=== PATIENT | female | born 1945 | race American Indian/Alaskan Native ===

== ENCOUNTER 2016-10-10 06:05 | Day surgery (SDC) | payer MEDICARE ==
[2016-10-10] MEDS ORDERED: WATER FOR IRRIG STERILE IR ONE ×2 (07:19→08:00)
--- NOTE | 2016-10-10 07:30 | Anesthesia Day of Surgery ---
Anesthesia Day of Surgery - Day of Surgery Patient Examined: Yes Patient H&P Reviewed: Yes Patient is NPO: Yes
[2016-10-10] MEDS ORDERED: DIPRIVAN 10 MG/ML IV ONE (07:31)
--- NOTE | 2016-10-10 07:31 | Anesthesia Consultation ---
Anesthesia Consult and Med Hx Date of service: 10/10/16 - Airway Anesthetic Teeth Evaluation: Good ROM Head & Neck: Adequate Mental/Hyoid Distance: Adequate Mallampati Class: Class II Intubation Access Assessment: Probably Good - Pulmonary Exam CTA: Yes - Cardiac Exam Cardiac Exam: RRR - Pre-Operative Health Status ASA Pre-Surgery Classification: ASA3 Proposed Anesthetic Plan: MAC - Pulmonary Hx Smoking: No SOB: Yes - Cardiovascular System Hx Hypertension: Yes Hx Heart Attack/AMI: No - Central Nervous System Hx Seizures: No CVA: No - Endocrine Hx Renal Disease: No Hx Liver Disease: No Hx Non-Insulin Dependent Diabetes: Yes (prediabetic, takes metformin) - Other Systems Hx Obesity: Yes - Additional Comments Anesthesia Medical History Comments: NAC
[2016-10-10] MEDS ORDERED: NACL 0.9% 1000 ML 1,000 ML IV SCH (08:00)
--- NOTE | 2016-10-10 08:19 | Discharge Summary ---
Providers - Providers Date of discharge: 10/10/16 Attending physician: JACQUE PALOMINO Hospitalization Condition: Good Procedures: egd Disposition: DC-01 TO HOME OR SELFCARE Core Measure Documentation - Palliative Care Palliative Care/ Comfort Measures: Not Applicable - Core Measures Any of the following diagnoses?: none Exam - Physical Exam Narrative exam: unchanged from pre-op - Constitutional Vitals: Temp Pulse Resp BP Pulse Ox 98.4 F 89 22 157/96 95 10/10/16 07:58 10/10/16 07:58 10/10/16 07:58 10/10/16 07:58 10/10/16 07:58 Plan Activity: no restrictions Weight Bearing Status: Full Weight Bearing
--- NOTE | 2016-10-10 08:22 | Operative Report ---
Operative Report Operative Report: OPERATIVE REPORT - EGD DATE 10/10/16 SURGERY: Upper endoscopy. SURGEON: Gordo Velasco M.D. SUBSTANCE ABUSE TECHNICIAN: n/a PRE OP DX:dyspepsia POST OP DX:hiatal hernia TYPE OF ANESTHESIA: MAC. ESTIMATED BLOOD LOSS: None. COMPLICATIONS: None. SPECIMENS REMOVED: None. FINDINGS: 1. Small hiatal hernia. 2. Otherwise, normal esophagus, stomach and first portion of duodenum. INDICATIONS:INDICATION FOR PROCEDURE: Patient is a 70-year-old female with a long history of morbid obesity. She has dyspepsia and is here to eval for pathology prior to bariatric surgery. She is planned to have a weight loss procedure and is here for preoperative planning EGD. PROCEDURE DETAILS: After consent was reviewed, patient was taken back to the operating room where patient was placed in the left lateral decubitus position and a bite block was placed in the mouth. After a time-out was called, MAC anesthesia was initiated. I then passed the endoscope into her oropharynx, into her esophagus, visualized the entire esophagus, which was all within normal limits. I then visualized the stomach and the first portion of the duodenum and there were no abnormalities I could clearly visualize. I then retroflexed the scope in the stomach and visualized the hiatus and I could see a small hiatal hernia. I then desufflated the stomach and removed the endoscope. Patient tolerated procedure well and was transferred to recovery room in good and stable condition.
--- NOTE | 2016-10-10 08:28 | Post Anesthesia Evaluation ---
- Post Anesthesia Evaluation Patient Participated: Yes Airway Patent: Yes Stable Respiratory Function: Yes Nausea/Vomiting: No Temp > 96.8F: Yes Pain Manageable: Yes Adequeate Hydration: Yes Anesthesia Complications: No Block Receding Appropriately: Not Applicable Patient on Ventilator: No
[2016-10-10 08:31] VITALS: BP 129/86
== END 2016-10-10 06:06 | disposition home or self-care (01) ==
LOC: GIO 06:05
PROVIDERS: ATTEND Surgery
DX: K44.9 Diaphragmatic hernia without obstruction or gangrene (principal); I10 Essential (primary) hypertension; E66.01 Morbid (severe) obesity due to excess calories; Z68.41 Body mass index [BMI] 40.0-44.9, adult; Z88.0 Allergy status to penicillin; Z88.1 Allergy status to other antibiotic agents; Z91.013 Allergy to seafood; Z90.710 Acquired absence of both cervix and uterus; Z96.659 Presence of unspecified artificial knee joint; Z79.899 Other long term (current) drug therapy
CPT/HCPCS: 43235; 82962; J2704; J7030

== ENCOUNTER 2017-01-10 10:15 | Inpatient (IN) | payer MEDICARE ==
--- NOTE | 2017-01-05 10:29 | Anesthesia Consultation ---
Anesthesia Consult and Med Hx Date of service: 01/05/17 - Airway Anesthetic Teeth Evaluation: Good ROM Head & Neck: Adequate Mental/Hyoid Distance: Adequate Mallampati Class: Class II Intubation Access Assessment: Probably Good - Pulmonary Exam CTA: Yes - Cardiac Exam Cardiac Exam: RRR - Pre-Operative Health Status ASA Pre-Surgery Classification: ASA3 Proposed Anesthetic Plan: General - Pulmonary Hx Smoking: No SOB: Yes Hx Sleep Apnea: Yes - Cardiovascular System Hx Hypertension: Yes (SINCE 2006) Hx Heart Attack/AMI: No - Central Nervous System Hx Seizures: No CVA: No Hx Psychiatric Problems: No - Endocrine Hx Renal Disease: No Hx Liver Disease: No Hx Non-Insulin Dependent Diabetes: Yes (prediabetic, takes metformin) - Other Systems Hx Alcohol Use: No Hx Substance Use: No Hx Cancer: No Hx Obesity: Yes
[~2017-01-10 10:15] MED LIST: APRESOLINE IV PRN; DILAUDID IV PRN; FLAGYL 500 MG/100 ML 500 MG/100 ML BAG IV NR; LEVAQUIN 500MG/100ML 500 MG/100 ML BAG IV NR; LOVENOX SUB-Q NR; MYLICON PO PRN; NACL 0.9% 1000 ML 1,000 ML IV SCH; PEPCID PO NR; REGLAN IV PRN; TRANSDERM-SCOP TD SCH; VERSED IV NR; ZOFRAN IV PRN
[2017-01-10] MEDS ORDERED: DIPRIVAN 10 MG/ML IV ONE (11:44)
[2017-01-10] MEDS ORDERED: SUBLIMAZE ONE (11:44)
[2017-01-10] MEDS ORDERED: XYLOCAINE MPF 2% ONE (11:49)
[2017-01-10] MEDS ORDERED: ZEMURON IV ONE (11:49)
[2017-01-10] MEDS ORDERED: XYLOCAINE 1% 20 mL ONE (11:53)
[2017-01-10] MEDS ORDERED: MARCAINE 0.5% 30 ML INFILTRATI ONE (11:53)
[2017-01-10] MEDS ORDERED: NACL 0.9% IR ONE ×2 (11:58)
[2017-01-10] MEDS ORDERED: MARCAINE 0.5% INFILTRATI ONE (11:58)
[2017-01-10] MEDS ORDERED: XYLOCAINE 1% 20 mL INFILTRATI ONE (11:58)
[2017-01-10] MEDS ORDERED: NEO SYNEPHRINE/NS Syringe(OR USE) IV ONE (12:00)
[2017-01-10] MEDS ORDERED: VERSED IV NR (12:00)
[2017-01-10] MEDS ORDERED: PEPCID IV NR (12:00)
[2017-01-10 12:03] LABS: Alanine Aminotransferase 33 units/L (7-56); Albumin 4.3 g/dL (3.9-5); Albumin/Globulin Ratio 1.6 %; Alkaline Phosphatase 70 units/L (35-129); Anion Gap 15 mmol/L; BUN/Creatinine Ratio 13; Basophils % (Auto) 0.9 % (0.0-1.8); Blood Urea Nitrogen 8 mg/dL (7-17); Calcium 9.3 mg/dL (8.4-10.2); Carbon Dioxide 27 mmol/L (22-30); Chloride 106.9 mmol/L (98-107); Eosinophils % (Auto) 2.7 % (0.0-4.3); Glucose 100 mg/dL (65-100); Hematocrit 43.1 % (30.3-42.9); Hemoglobin 14.3 gm/dl (10.1-14.3); Mean Corpuscular HGB Conc 33 % (30-34); Mean Corpuscular Hemoglobin 28 pg (28-32); Mean Corpuscular Volume 83 fl (79-97); Platelet Count 313 K/mm3 (140-440); Potassium 4.3 mmol/L (3.6-5.0); Red Blood Count 5.18 M/mm3 (3.65-5.03); Red Cell Distribution Width 14.3 % (13.2-15.2); Sodium 145 mmol/L (137-145); White Blood Count 5.2 K/mm3 (4.5-11.0)
[2017-01-10] MEDS ORDERED: DECADRON ONE (12:03)
[2017-01-10] MEDS ORDERED: ZOFRAN ONE ×2 (12:03→12:23)
[2017-01-10 12:18] LABS: Bacteria,Urine 1+ /HPF (Negative); Bilirubin,Urine NEG (Negative); Blood,Urine NEG (Negative); Ketones,Urine NEG (Negative); Leukocyte Esterase,Urine TR (Negative); Mucus,Urine 3+ /HPF; Nitrite,Urine NEG (Negative); Protein,Urine <15 mg/dL mg/dL (Negative)
[2017-01-10] MEDS ORDERED: NEOSTIGMINE ONE (12:22)
[2017-01-10] MEDS ORDERED: ROBINUL ONE ×2 (12:22)
[2017-01-10] MEDS ORDERED: DILAUDID ONE (12:24)
--- NOTE | 2017-01-10 12:33 | Anesthesia Day of Surgery ---
Anesthesia Day of Surgery - Day of Surgery Patient Examined: Yes Patient H&P Reviewed: Yes Patient is NPO: Yes
[2017-01-10] MEDS ORDERED: ePHEDrine SULFATE ONE (13:09)
[2017-01-10] MEDS: DILAUDID IV PRN ×3 (14:30→15:20)
--- NOTE | 2017-01-10 14:45 | Operative Report ---
Operative Report Operative Report: DATE OF PROCEDURE: 01/10/17 PREOPERATIVE DIAGNOSES: Morbid obesity, hiatal hernia POSTOPERATIVE DIAGNOSES: 1.same as pre-op SURGEON: Dr. Douglas LABOR TRAINER: Dr. Luis Fernando Stroud DO PROCEDURE: 1. laparoscopic sleeve gastrectomy 2. laparoscopic hiatal hernia repair ANESTHESIA: General. ESTIMATED BLOOD LOSS: <5 mL. COMPLICATIONS: None. SPECIMEN: Partial gastrectomy. FINDINGS: 1. hiatal hernia INDICATION FOR PROCEDURE: Patient is a 71-year-old female with a long history of morbid obesity. She has tried multiple efforts at weight loss without senior care success. She is here today for sleeve gastrectomy. She has a hx of hysterectomy and lap seven as well. PROCEDURE IN DETAIL: After consent was reviewed, patient was taken back to the operating room, where patient was placed supine on the bed with both arms out. The patient's legs were doubly strapped to the bed. Patient had a foot board in place. Patient had a body warmer placed by anesthesia. Patient was then prepped and draped in normal sterile surgical fashion. After a time-out was called, I made a stab incision in the umbilicus and placed a Veress needle through this incision and insufflated the abdomen to 18 mmHg pressure. Once the abdomen was adequately insuflated I widened the umbical incision were the veress had been placed and inserted a 15mm trocar. I then placed a 45-degree scope through this port and inspected the abdomen. There was no injury on entry of the abdomen. I then placed two 5-mm ports in the right upper quadrant, one along the anterior axillary line and 1 subxiphoid below the costovertebral angle. I then placed left upper quadrant port along the anterior axillary line in a similar fashion. I then placed the liver retractor through the subxiphoid port and placed the patient in full reverse Trendelenburg. The right and left crura were skeletonized accentuating a small hiatal hernia. An anterior cruraplasty was perfromed with a figure-of-8 stitch using Endostitch with 0 ethibond suture to reapproximate the crura. I then identified the pylorus and then counted off 6cm from the pylorus. I then used a LigaSure cutting device to enter into the lesser sac. At that point and then I took down the short gastrics all the way up to the left katie. Then I had anesthesia pass down a 36-Beninese bougie along the lesser curvature of the stomach. I made sure everything else was out of the abdomen except the bougie. I then created my gastric sleeve using a 60-mm laparoscopic stapler. . The sleeve looked good without any twisting or torsion. I then had anesthesia to remove the bougie. Hemostasis was obtained along the staple line. I then used Tiseel along the entirety of the staple line and some on the liver. I then removed liver grasper and took it off the field. I then removed the stomach through the 15-mm umbilcal port. I then closed that fascia with a #1 PDS in a [id number] fashion using a Shreyas-Stu. I then desufflated the abdomen and then removed all port sites. I then closed the incisions with 4-0 Monocryl in subcuticular fashion. I then dressed the wounds with steristrips and gauze. Patient tolerated the procedure well and was transferred to recovery room in good and stable condition.
--- NOTE | 2017-01-10 15:02 | Post Anesthesia Evaluation ---
- Post Anesthesia Evaluation Patient Participated: Yes Airway Patent: Yes Stable Respiratory Function: Yes Temp > 96.8F: Yes Pain Manageable: Yes Adequeate Hydration: Yes Anesthesia Complications: No
[2017-01-10] MEDS: LACTATED RINGERS 1,000 ML IV SCH ×2 (16:38→23:04)
[2017-01-10] MEDS: NORCO PO PRN (23:03)
[2017-01-11 05:14] LABS: Basophils % (Auto) 0.3 % (0.0-1.8); Hematocrit 38.4 % (30.3-42.9); Hemoglobin 12.2 gm/dl (10.1-14.3); Mean Corpuscular HGB Conc 32 % (30-34); Mean Corpuscular Hemoglobin 26 pg (28-32); Mean Corpuscular Volume 83 fl (79-97); Platelet Count 286 K/mm3 (140-440); Red Blood Count 4.62 M/mm3 (3.65-5.03); Red Cell Distribution Width 14.3 % (13.2-15.2); White Blood Count 10.3 K/mm3 (4.5-11.0)
[2017-01-11 05:33] LABS: BUN/Creatinine Ratio 16; Blood Urea Nitrogen 8 mg/dL (7-17); Calcium 8.6 mg/dL (8.4-10.2); Carbon Dioxide 25 mmol/L (22-30); Chloride 103.7 mmol/L (98-107); Glucose 102 mg/dL (65-100); Sodium 141 mmol/L (137-145)
[2017-01-11 05:34] LABS: Anion Gap 16 mmol/L; Potassium 4.1 mmol/L (3.6-5.0)
[2017-01-11] MEDS: LACTATED RINGERS 1,000 ML IV SCH (06:14)
[2017-01-11] MEDS: NORCO PO PRN (09:35)
[2017-01-11] MEDS ORDERED: LOPRESSOR PO ONE (10:00)
[2017-01-11] MEDS ORDERED: LOVENOX SUB-Q SCH (10:00)
--- NOTE | 2017-01-11 12:40 | Discharge Summary ---
Providers - Providers Date of Admission: 01/10/17 10:15 Attending physician: NOELLE KING Primary care physician: RONDA GLASS Hospitalization Procedures: lap sleeve gastrectomy. Hospital course: 71 y.o. F presented to same day surgery for laparoscopic sleeve gastrectomy. She tolerated the procedure well. On POD 1 she tolerated liquids and denies any vomiting. She ambulated well. She was discharged on POD 1 without issues. Disposition: DC-01 TO HOME OR SELFCARE Core Measure Documentation - Palliative Care Palliative Care/ Comfort Measures: Not Applicable - Core Measures Any of the following diagnoses?: none Exam - Physical Exam Narrative exam: Abd: soft, tender at incision sites. dressings: minimal dry blood. no rebound no guarding. - Constitutional Vitals: Temp Pulse Resp BP Pulse Ox 98.8 F 98 H 18 121/75 96 01/11/17 08:00 01/11/17 08:00 01/11/17 08:00 01/11/17 08:00 01/11/17 08:00 Plan Activity: other (no lifting >15lbs for 6 weeks ) Diet: clear liquids (sugar free ) Wound: keep clean and dry Additional Instructions: follow up for wound check . Crush medications, no whole pills. Follow up with: RONDA GLASS MD [Primary Care Provider] - 7 Days
[2017-01-11 13:50] VITALS: BP 155/88
== END 2017-01-11 14:35 | disposition home or self-care (01) | DRG 621 ==
LOC: 3A 10:15 → 3B-SURG 14:59
PROVIDERS: ADMIT Specialist; ATTEND Specialist
PROC: 0DB64Z3 Excision of Stomach, Percutaneous Endoscopic Approach, Vertical (ICD-10-PCS; principal; 2017-01-10)
PROC: 0BUT4JZ Supplement Diaphragm with Synthetic Substitute, Percutaneous Endoscopic Approach (ICD-10-PCS; 2017-01-10)
DX: E66.01 Morbid (severe) obesity due to excess calories (principal); K44.9 Diaphragmatic hernia without obstruction or gangrene; Z68.41 Body mass index [BMI] 40.0-44.9, adult; Z88.0 Allergy status to penicillin; Z88.8 Allergy status to other drugs, medicaments and biological substances; I10 Essential (primary) hypertension
CPT/HCPCS: 36415; 80048; 80053; 81001; 82962; 83735; 85025; 88307; 94760; A4217; C9250; J1100; J1170; J1650; J1956; J2250; J2370; J2405; J2704; J2710; J3010; J7030; J7120